=== PATIENT | female | born 1990 | race Caucasian/White ===

== ENCOUNTER 2016-10-25 13:57 | Emergency (ER) | payer OTHER ==
[~2016-10-25 13:57] MED LIST: COLACE 100MG C100 MG PO
[2016-10-25 15:23] LABS: HEMOGLOBIN 14.2 gm/dl (12.3-15.3); RED BLOOD COUNT 4.48 M/UL (4.00-5.10); WHITE BLOOD COUNT 9.6 K/UL (4.5-11.0)
[2016-10-25 15:40] LABS: BUN/CREATININE RATIO 13 (0-10)
== END 2016-10-25 20:10 | disposition home or self-care (01) ==
LOC: ER1 13:57
PROVIDERS: Emergency Medicine
DX: N13.2 Hydronephrosis with renal and ureteral calculous obstruction (principal); I10 Essential (primary) hypertension; Z88.0 Allergy status to penicillin; Z79.899 Other long term (current) drug therapy
CPT/HCPCS: 36415; 80053; 81001; 84703; 85025; 87086; 96361; 96365; 96375; 96376; 99284; J1885; J1956; J2270; J2405

== ENCOUNTER 2020-11-30 20:53 | Emergency (ER) | payer OTHER ==
[~2020-11-30 20:53] MED LIST changes: +NORCO 10-325 T1 EACH PO; +NORCO 5-325 TA1 EACH PO; +PRENATAL VITAM1 EAC3 PO; +VIBRAMYCIN100 MG PO
[2020-11-30] MEDS ORDERED: MEDROL DOSEPAK 24 MG PO (22:51)
[2020-11-30] MEDS ORDERED: FLONASE ALLER15.8 ML (22:51)
[2020-11-30] MEDS ORDERED: ZYRTEC10 MG PO (22:51)
== END 2020-11-30 22:55 | disposition home or self-care (01) ==
LOC: ER1 20:53
DX: R51.9 Headache, unspecified (principal); R05 Cough; Z88.0 Allergy status to penicillin; Z90.89 Acquired absence of other organs; Z20.822 Contact with and (suspected) exposure to COVID-19; F17.290 Nicotine dependence, other tobacco product, uncomplicated
CPT/HCPCS: 71046; 99283; U0002

== ENCOUNTER 2021-08-22 15:11 | Emergency (ER) | payer OTHER ==
[~2021-08-22 15:11] MED LIST changes: +FLONASE ALLER15.8 ML; +MEDROL DOSEPAK 24 MG PO; +ZYRTEC10 MG PO
[2021-08-22] MEDS ORDERED: NAPROXEN500 MG PO (16:56)
== END 2021-08-22 17:00 | disposition home or self-care (01) ==
LOC: ER1 15:11
DX: S93.601A Unspecified sprain of right foot, initial encounter (principal); F17.200 Nicotine dependence, unspecified, uncomplicated; Z88.0 Allergy status to penicillin; X50.1XXA Overexertion from prolonged static or awkward postures, initial encounter
CPT/HCPCS: 73630; 99283

== ENCOUNTER 2021-12-27 19:55 | Emergency (ER) | payer OTHER ==
[~2021-12-27 19:55] MED LIST changes: +NAPROXEN500 MG PO
[2021-12-27 21:05] LABS: HEMOGLOBIN 13.7 gm/dl (12.3-15.3); RED BLOOD COUNT 4.57 M/UL (4.00-5.10); WHITE BLOOD COUNT 7.4 K/UL (4.5-11.0)
[2021-12-27 21:25] LABS: BUN/CREATININE RATIO 24 (0-10)
[2021-12-28] MEDS ORDERED: ZOFRAN ODT 4 MG4 MG PO (02:16)
[2021-12-28] MEDS ORDERED: OMNICEF 300 MG300 MG PO (02:16)
== END 2021-12-28 03:17 | disposition home or self-care (01) ==
LOC: ER1 19:55
PROVIDERS: Physician Assistant
DX: N39.0 Urinary tract infection, site not specified (principal); M79.10 Myalgia, unspecified site; Z20.822 Contact with and (suspected) exposure to COVID-19; F17.290 Nicotine dependence, other tobacco product, uncomplicated
CPT/HCPCS: 0240U; 80053; 81001; 83735; 85025; 87081; 87086; 87880; 96361; 96374; 96375; 99284; J0696; J2405